=== PATIENT | female | born 1970 | race Caucasian/White ===

== ENCOUNTER → 2016-12-14 | Outpatient (CLI) | payer BC ==
--- NOTE | 2016-12-14 13:07 | MR ---
EXAMINATION TYPE: MR brain wo con DATE OF EXAM: 12/14/2016 8:47 AM COMPARISON: NONE HISTORY: 46-year-old female benign paroxysmal vertigo right ear TECHNIQUE: Multiplanar, multisequence images of the brain and brainstem were acquired without IV con trast. Diffusion weighted imaging is performed. FINDINGS: No evidence for acute infarction, hemorrhage, mass, mass effect, midline shift, herniation, effacemen t of basal cisterns, or extra-axial fluid collection. There is no hydrocephalus. There is mild cerebral cortical volume loss. Major intracranial flow voids are intact. T2/FLAIR weighted sequences show moderate scattered burden of right signal change within the subcorti lizbeth and deep white matter of both cerebral hemispheres numbering approximately 36 on the right and 46 on the left and measuring up to 5 mm. Midline structures demonstrate normal morphology. The craniocervical junction is normal. No cerebellopontine angle mass. Mild mucosal thickening within the paranasal sinuses sparing the sphenoid sinuses. Leftward nasal sep clau deviation. Globes appear intact. IMPRESSION: 1. Mild cerebral atrophy. No acute intracranial abnormality seen. 2. Moderate scattered burden of T2 bright white matter change. Findings are nonspecific but may relat e to early changes of chronic small vessel ischemic disease. Chronic migraines, vasculitis such as Ly me's disease, and demyelinating process could also be included in the differential. 3. No CP angle mass. If more detailed assessment of the temporal bones is desired, consider acoustic MRI. 4. Mild chronic paranasal sinus disease.
== END | disposition home or self-care (01) ==
LOC: RADMRIMAIN 08:07
PROVIDERS: ATTEND Psychiatry & Neurology Neurology
DX: G31.9 Degenerative disease of nervous system, unspecified (principal); R90.82 White matter disease, unspecified
CPT/HCPCS: 70551; 92540

== ENCOUNTER → 2016-12-31 | Outpatient (CLI) | payer BC ==
--- NOTE | 2017-01-13 11:33 | ENG ---
DATE OF SERVICE: 12/31/2016 ELECTRONYSTAGMOGRAPHIC EXAMINATION REPORT INDICATIONS FOR EXAMINATION: This patient is a 46-year-old female being evaluated for symptoms of dizziness and vertigo. The patient also with gait imbalance and lightheadedness. Symptoms have been occurring intermittently for several years. Patient also complains of tinnitus involving the left ear. CALIBRATION: Within normal limits. SPONTANEOUS NYSTAGMUS: No spontaneous nystagmus was seen. GAZE NYSTAGMUS: No gaze evoked nystagmus was seen. SINUSOIDAL TRACKING TEST: Smooth pursuit eye movements at both 10 and 20 degrees per minute were slightly impaired. Saccadic attempts at eye tracking were observed. OPTOKINETICS: The optokinetics were asymmetrical with right beating nystagmus being better developed as compared to left beating nystagmus at lower and higher target speeds bilaterally. JENNA-HALLPIKE TEST: The left Jenna-Hallpike maneuver did not produce any dizziness. No nystagmus was seen. The right Jenna-Hallpike maneuver did not produce any dizziness. No nystagmus was seen. POSITIONAL NYSTAGMUS: No positional nystagmus was seen in all 6 positions tested. CALORIC TEST: Bithermal alternating caloric irrigation revealed unilateral weakness on the right and directional preponderance to the right without failure of fixation suppression. IMPRESSION: This electronystagmogram does not contain any spontaneous nystagmus. There was no gaze evoked nystagmus seen. Smooth pursuit eye movements were slightly impaired. Saccadic attempts at eye tracking were observed. The optokinetics were asymmetrical with right beating nystagmus being better developed as compared to left beating nystagmus at lower and higher target speeds bilaterally. The [place]-Hallpike maneuver was essentially negative. No positional nystagmus was seen in all 6 positions tested. Caloric testing revealed unilateral weakness on the right and directional preponderance to the right without failure of fixation suppression. The above findings favor a right peripheral vestibular disturbance in an irritative status. Clinical correlation is recommended.
== END | disposition home or self-care (01) ==
LOC: CPPFTMAIN 10:06
PROVIDERS: ATTEND Psychiatry & Neurology Neurology
DX: H81.11 Benign paroxysmal vertigo, right ear (principal); R51 Headache
CPT/HCPCS: 92537

== ENCOUNTER → 2018-07-02 | Outpatient (CLI) | payer OTHER ==
--- NOTE | 2018-07-02 13:35 | XR ---
EXAMINATION TYPE: XR shoulder complete RT DATE OF EXAM: 07/02/2018 CLINICAL HISTORY: Right shoulder pain after lifting injury TECHNIQUE: Three views of the right shoulder are obtained. COMPARISON: None. FINDINGS: There is no acute fracture/dislocation evident in the right shoulder. The acromioclavicul ar and glenohumeral joint spaces appear within normal limits. The visualized ribs are intact and unr emarkable. IMPRESSION: There is no acute fracture or dislocation in the right shoulder.
== END | disposition home or self-care (01) ==
LOC: RADXRMAIN 11:44
PROVIDERS: ATTEND Emergency Medicine
DX: M25.511 Pain in right shoulder (principal)